=== PATIENT | female | born 1970 | race Caucasian/White ===

== ENCOUNTER 2017-05-02 09:40 | Emergency (ER) | payer OTHER ==
[~2017-05-02] VITALS: Ht 162.6 cm; Wt 87.1 kg
[~2017-05-02 09:40] MED LIST: ALBU90OI; BENTYL20 MG PO; Bactrim Ds Tab1 EACH PO; CIPR500 PO; CYCL10 PO; DIPH50; DIPH50 PO; Flagyl500 MG PO; HYDR1TAB94 PO; MECL12.5; METR500 PO; Naprosyn250 MG PO; Norco 10-325 T1 EACH PO; ONDA4ODT; ONDA4ODT MM; PANT40 PO; PROM25S; PROM25S PR; RANI150 PO
[2017-05-02] MEDS ORDERED: Ondansetron Odt8 MG PO (10:44)
[2017-05-02] MEDS ORDERED: QUET300 PO (10:46)
[2017-05-02] MEDS ORDERED: CYCL10 PO (10:46)
[2017-05-02] MEDS ORDERED: GABA600 PO (10:47)
[2017-05-02] MEDS ORDERED: PRAZ5 PO (10:48)
[2017-05-02] MEDS ORDERED: CLON.5 PO (10:49)
[2017-05-02] MEDS ORDERED: ACET500 PO (10:49)
[2017-05-02] MEDS ORDERED: Amlodipine-Ben1 EAC3 PO (10:50)
[2017-05-02] MEDS ORDERED: Budeprion Xl300 MG PO (10:51)
[2017-05-02] MEDS ORDERED: BUSP10 PO (10:51)
[2017-05-02 12:05] LABS: Alanine Aminotransfer (ALT/SGP 21 U/L (12-78); Albumin, Blood 3.3 g/dL (3.4-5.0); Albumin/Globulin Ratio 0.9 (0.8-1.8); Alk Phos 82 U/L (50-136); Anion Gap 7 mmol/L (6-16); Aspartate Aminotrans (AST/SGOT 10 U/L (12-37); Bilirubin, Total 0.2 mg/dL (0.1-1.0); Blood Urea Nitrogen 16 mg/dL (8-24); CO2, Blood 24 mmol/L (21-32); Calcium, Blood 8.6 mg/dL (8.5-10.1); Chloride, Blood 110 mmol/L (98-108); Creatinine, Blood 0.89 mg/dL (0.40-1.00); Globulin, Blood 3.7 g/dL (2.2-4.0); Glomerular Filtration Rate >60 (60-); Glucose, Blood 99 mg/dL (70-99); Potassium, Blood 3.9 mmol/L (3.5-5.5); Sodium, Blood 141 mmol/L (136-145)
[2017-07-22] MEDS ORDERED: Dyazide 37.5-21 EACH PO (09:46)
== END 2017-05-02 12:51 | disposition home or self-care (01) ==
LOC: ER 09:40
PROVIDERS: Physician Assistant
DX: R20.0 Anesthesia of skin (principal); R20.2 Paresthesia of skin; Z88.1 Allergy status to other antibiotic agents; Z88.0 Allergy status to penicillin; Z91.040 Latex allergy status; Z79.899 Other long term (current) drug therapy; Z87.891 Personal history of nicotine dependence
CPT/HCPCS: 36415; 80053; 99283